=== PATIENT | male | born 1960 | race Caucasian/White ===

== ENCOUNTER 2020-06-04 11:05 | Inpatient (IN) | payer MEDICARE, MEDICAID ==
[~2020-06-04] VITALS: Ht 167.6 cm; Wt 99.5 kg
[2020-06-04] MEDS ORDERED: ONDANSETRON HCL 4MG/2ML INJ IV STA (11:21)
[2020-06-04] MEDS ORDERED: SODIUM CHLORIDE 0.9% 250 ML IV ONE (11:30)
[2020-06-04 12:53] LABS: BASOPHILS % 0.6 % (0.0-2.0); HEMATOCRIT. 32.3 % (42.0-52.0); HEMOGLOBIN. 11.3 g/dL (14.0-18.0); LYMPHOCYTES % 13.5 % (20.0-50.0); MEAN CORPUSCULAR HEMOGLOBIN 33.5 pg (28.0-32.0); MEAN CORPUSCULAR VOLUME 95.8 fL (80.0-94.0); MEAN PLATELET VOLUME 9.4 fl (7.4-10.4); MONOCYTES % 4.3 % (2.0-8.0); NEUTROPHILS % 81.6 % (40.0-76.0); PLATELET 81 x1000/uL (130-400); RED BLOOD CELL COUNT 3.37 mill/uL (4.7-6.1); RED CELL DISTRIBUTION WIDTH 14.6 % (11.6-14.6)
[2020-06-04 13:00] LABS: INR 1.1; PROTHROMBIN TIME 11.4 sec (9.6-11.0)
[2020-06-04 13:01] LABS: CHLORIDE 93 mEq/L (98-107)
[2020-06-04] MEDS ORDERED: GUAIFENESIN 200MG/10ML SUGAR FREE UDC PO PRN (15:30)
[2020-06-04] MEDS ORDERED: DIPHENHYDRAMINE 50MG/ML VIAL IV PRN (15:30)
[2020-06-04] MEDS ORDERED: DOCUSATE SODIUM 100MG CAPSULE PO PRN (15:30)
[2020-06-04] MEDS ORDERED: CLONIDINE 0.1MG TABLET PO PRN (15:30)
[2020-06-04] MEDS ORDERED: TRAMADOL 50MG TABLET PO PRN (15:30)
[2020-06-04] MEDS ORDERED: ACETAMINOPHEN 325MG TABLET PO PRN (15:30)
[2020-06-04] MEDS ORDERED: ENOXAPARIN 40MG/0.4ML SYR SUBCUT SCH (15:30)
[2020-06-04] MEDS ORDERED: ONDANSETRON HCL 4MG/2ML INJ IV PRN (15:30)
[2020-06-04] MEDS ORDERED: DEXTROSE 50% WATER 50ML SYRINGE IV PRN (15:30)
[2020-06-04] MEDS ORDERED: NITROGLYCERIN 0.4MG TABLET SL SL PRN (15:30)
[2020-06-04] MEDS ORDERED: CEFTRIAXONE 1 G PREMIX 50 ML IV SCH (16:00)
[2020-06-04] MEDS: BLOOD SUGAR DIAGNOSTIC STRIP TEST SCH ×3 (17:00→21:35)
[2020-06-04 17:01] LABS: D-DIMER 2.23 mg/L FEU (<0.50)
[2020-06-04 17:10] LABS: TOTAL IRON BINDING CAPACITY 189 ug/dL (250-450)
[2020-06-04 17:44] LABS: FOLIC ACID (FOLATE) SERUM 10.9 ng/mL (>5.38)
[2020-06-04 18:00] VITALS: BP 137/87
[2020-06-04] MEDS: INSULIN LISPRO 100 UNITS/ML SUBCUT SCH ×2 (18:01→21:00)
[2020-06-04] MEDS ORDERED: CARV25TA47 MT (18:05)
[2020-06-04] MEDS ORDERED: ALLO100T MT (18:05)
[2020-06-04] MEDS ORDERED: ASPI-1497 MT (18:05)
[2020-06-04] MEDS ORDERED: BENA10TA74 MT (18:05)
[2020-06-04] MEDS: ACETAMINOPHEN 325MG TABLET PO PRN (18:10)
[2020-06-04] MEDS: SEVELAMER CARBONATE 800 MG TABLET PO SCH (18:11)
[2020-06-04] MEDS: AZITHROMYCIN 500 MG in DEXT 5% WATER 250 ML IV SCH (18:11)
[2020-06-04 20:15] VITALS: BP 136/80
[2020-06-04] MEDS ORDERED: ZOLPIDEM TARTRATE 5MG TABLET PO PRN (21:00)
[2020-06-04] MEDS: METOPROLOL TARTRATE 25MG TABLET PO SCH (21:42)
[2020-06-04] MEDS: FAMOTIDINE 20MG TABLET PO SCH (21:42)
[2020-06-04] MEDS: GUAIFENESIN/DM 600MG/30MG ER TAB 12HR PO SCH (21:42)
[2020-06-04] MEDS: ASCORBIC ACID 500 MG TABLET PO SCH (21:43)
[2020-06-04 23:30] LABS: CREATINE KINASE 149 IU/L (39-308)
[2020-06-04 23:31] LABS: CREATINE KINASE MB FRACTION < 1.0 ng/mL (0.5-3.6)
[2020-06-05 00:09] VITALS: BP 139/80
[2020-06-05 04:00] VITALS: BP 147/81
[2020-06-05] MEDS: ACETAMINOPHEN 325MG TABLET PO PRN (05:46)
[2020-06-05] MEDS: BLOOD SUGAR DIAGNOSTIC STRIP TEST SCH ×5 (05:52→21:17)
[2020-06-05 06:28] LABS: CHLORIDE 93 mEq/L (98-107)
[2020-06-05 06:34] LABS: PHOSPHORUS 7.4 mg/dL (2.5-4.9)
[2020-06-05 06:36] LABS: CREATINE KINASE 133 IU/L (39-308)
[2020-06-05 06:42] LABS: CREATINE KINASE MB FRACTION < 1.0 ng/mL (0.5-3.6)
[2020-06-05 06:50] LABS: BASOPHILS % 0.4 % (0.0-2.0); EOSINOPHILS % 0.2 % (0.0-5.0); HEMATOCRIT. 34.4 % (42.0-52.0); HEMOGLOBIN. 11.7 g/dL (14.0-18.0); LYMPHOCYTES % 9.2 % (20.0-50.0); MEAN CORPUSCULAR VOLUME 96.8 fL (80.0-94.0); MEAN PLATELET VOLUME 9.1 fl (7.4-10.4); MONOCYTES % 3.8 % (2.0-8.0); NEUTROPHILS % 86.4 % (40.0-76.0); PLATELET 81 x1000/uL (130-400); RED BLOOD CELL COUNT 3.55 mill/uL (4.7-6.1); RED CELL DISTRIBUTION WIDTH 15.2 % (11.6-14.6)
[2020-06-05 08:00] VITALS: BP_SYST 126; BP_SYST 146; BP_DIAS 69
[2020-06-05] MEDS: INSULIN LISPRO 100 UNITS/ML SUBCUT SCH ×4 (08:10→21:00)
[2020-06-05 10:09] LABS: BG BASE EXCESS -3.6 mmol/L (-2.0-2.0); BG CARBOXYHEMOGLOBIN 0.6 % (0.5-1.5); BG DEOXYHEMOGLOBIN 4.4 % (0.0-5.0); BG FRACTION INSPIRED OXYGEN 26; BG HCO3 ACT 20.7 mmol/L (22.0-26.0); BG METHEMOGLOBIN 0.3 % (0.0-1.5); BG OXYGEN SATURATION 95.6 % (92.0-98.5); BG OXYHEMOGLOBIN 94.7 % (94.0-97.0); BG PCO2 34.6 mmHg (35.0-45.0); BG PH 7.394 (7.350-7.450); BG PO2 82.5 mmHg (75.0-100.0); BG SAMPLE SITE LEFT RADIAL; BG VENT MODE NASAL CANNULA
[2020-06-05] MEDS: GUAIFENESIN/DM 600MG/30MG ER TAB 12HR PO SCH ×2 (10:31→21:17)
[2020-06-05] MEDS: SEVELAMER CARBONATE 800 MG TABLET PO SCH ×3 (10:31→17:40)
[2020-06-05] MEDS: ASCORBIC ACID 500 MG TABLET PO SCH ×2 (10:31→21:17)
[2020-06-05] MEDS: METOPROLOL TARTRATE 25MG TABLET PO SCH ×2 (10:31→21:00)
[2020-06-05] MEDS: ASPIRIN 325MG EC TABLET PO SCH (10:32)
[2020-06-05] MEDS: ZINC SULFATE 220 MG ( 50 ) CAPSULE PO SCH (10:32)
[2020-06-05] MEDS: CEFTRIAXONE 1,000 MG in DEXTROSE 5% WATER 50 ML IV SCH (11:19)
[2020-06-05 12:00] VITALS: BP 121/60
[2020-06-05] MEDS: DEXAMETHASONE 2MG TABLET PO SCH (15:11)
[2020-06-05] MEDS: ALBUTEROL 6.7GM HFA INHALER ORI SCH ×2 (17:39→20:00)
[2020-06-05] MEDS: AZITHROMYCIN 500 MG in DEXT 5% WATER 250 ML IV SCH (17:42)
[2020-06-05] MEDS: MAGNESIUM/ALUMINUM HYDROXIDE/SIMETHICONE 30ML UDC PO PRN ×2 (18:34→18:35)
[2020-06-05 20:00] VITALS: BP 119/78
[2020-06-05] MEDS: FAMOTIDINE 20MG TABLET PO SCH (21:17)
[2020-06-06] VITALS: BP 118/72
[2020-06-06] MEDS: ALBUTEROL 6.7GM HFA INHALER ORI SCH ×4 (01:13→21:34)
[2020-06-06 04:00] VITALS: BP 99/65
[2020-06-06 08:00] VITALS: BP 118/69
[2020-06-06] MEDS: INSULIN LISPRO 100 UNITS/ML SUBCUT SCH ×4 (08:10→21:59)
[2020-06-06 09:10] LABS: BASOPHILS % 0.5 % (0.0-2.0); EOSINOPHILS % 0.1 % (0.0-5.0); HEMATOCRIT. 39.1 % (42.0-52.0); HEMOGLOBIN. 13.3 g/dL (14.0-18.0); LYMPHOCYTES % 8.1 % (20.0-50.0); MEAN CORPUSCULAR HEMOGLOBIN 32.8 pg (28.0-32.0); MEAN CORPUSCULAR VOLUME 96.7 fL (80.0-94.0); MEAN PLATELET VOLUME 9.2 fl (7.4-10.4); MONOCYTES % 4.2 % (2.0-8.0); NEUTROPHILS % 87.1 % (40.0-76.0); PLATELET 85 x1000/uL (130-400); RED BLOOD CELL COUNT 4.04 mill/uL (4.7-6.1); RED CELL DISTRIBUTION WIDTH 15.3 % (11.6-14.6)
[2020-06-06] MEDS: ASPIRIN 325MG EC TABLET PO SCH (09:16)
[2020-06-06] MEDS: GUAIFENESIN/DM 600MG/30MG ER TAB 12HR PO SCH ×2 (09:16→21:35)
[2020-06-06] MEDS: SEVELAMER CARBONATE 800 MG TABLET PO SCH ×3 (09:16→16:39)
[2020-06-06 09:17] LABS: CHLORIDE 93 mEq/L (98-107)
[2020-06-06] MEDS: ZINC SULFATE 220 MG ( 50 ) CAPSULE PO SCH (09:17)
[2020-06-06] MEDS: ASCORBIC ACID 500 MG TABLET PO SCH ×2 (09:17→21:35)
[2020-06-06] MEDS: DEXAMETHASONE 2MG TABLET PO SCH (09:17)
[2020-06-06] MEDS: METOPROLOL TARTRATE 25MG TABLET PO SCH ×2 (09:18→21:35)
[2020-06-06] MEDS: CEFTRIAXONE 1,000 MG in DEXTROSE 5% WATER 50 ML IV SCH (09:20)
[2020-06-06 09:22] LABS: PHOSPHORUS 6.8 mg/dL (2.5-4.9)
[2020-06-06 12:00] VITALS: BP 120/71
[2020-06-06] MEDS: BLOOD SUGAR DIAGNOSTIC STRIP TEST SCH ×3 (12:35→21:35)
[2020-06-06 16:00] VITALS: BP 125/72
[2020-06-06] MEDS ORDERED: AZITHROMYCIN 500 MG in DEXT 5% WATER 250 ML IV SCH (18:00)
[2020-06-06 20:00] VITALS: BP 111/71
[2020-06-06] MEDS: FAMOTIDINE 20MG TABLET PO SCH (21:34)
[2020-06-07] VITALS (7 sets, daily range): BP systolic 114–135; BP diastolic 66–86
[2020-06-07] MEDS: ALBUTEROL 6.7GM HFA INHALER ORI SCH ×4 (02:00→20:55)
[2020-06-07] MEDS: BLOOD SUGAR DIAGNOSTIC STRIP TEST SCH ×4 (05:57→20:57)
[2020-06-07 07:07] LABS: CHLORIDE 89 mEq/L (98-107)
[2020-06-07 07:09] LABS: HEMATOCRIT. 38.3 % (42.0-52.0); HEMOGLOBIN. 13.1 g/dL (14.0-18.0); MEAN CORPUSCULAR HEMOGLOBIN 32.5 pg (28.0-32.0); MEAN CORPUSCULAR VOLUME 95.2 fL (80.0-94.0); MEAN PLATELET VOLUME 9.9 fl (7.4-10.4); PLATELET 121 x1000/uL (130-400); RED BLOOD CELL COUNT 4.02 mill/uL (4.7-6.1); RED CELL DISTRIBUTION WIDTH 14.8 % (11.6-14.6)
[2020-06-07 07:15] LABS: PHOSPHORUS 7.9 mg/dL (2.5-4.9)
[2020-06-07] MEDS: CEFTRIAXONE 1,000 MG in DEXTROSE 5% WATER 50 ML IV SCH (08:24)
[2020-06-07] MEDS: ZINC SULFATE 220 MG ( 50 ) CAPSULE PO SCH (08:25)
[2020-06-07] MEDS: SEVELAMER CARBONATE 800 MG TABLET PO SCH ×3 (08:25→17:42)
[2020-06-07] MEDS: DEXAMETHASONE 2MG TABLET PO SCH (08:25)
[2020-06-07] MEDS: GUAIFENESIN/DM 600MG/30MG ER TAB 12HR PO SCH ×2 (08:25→20:55)
[2020-06-07] MEDS: METOPROLOL TARTRATE 25MG TABLET PO SCH ×2 (08:25→20:56)
[2020-06-07] MEDS: ASPIRIN 325MG EC TABLET PO SCH (08:25)
[2020-06-07] MEDS: ASCORBIC ACID 500 MG TABLET PO SCH ×2 (08:25→20:55)
[2020-06-07] MEDS: INSULIN LISPRO 100 UNITS/ML SUBCUT SCH ×4 (08:26→20:57)
[2020-06-07] MEDS: AZITHROMYCIN 500 MG TABLET PO SCH (17:41)
[2020-06-07] MEDS: FAMOTIDINE 20MG TABLET PO SCH (20:55)
[2020-06-08] MEDS: ALBUTEROL 6.7GM HFA INHALER ORI SCH ×4 (02:53→20:44)
[2020-06-08 04:00] VITALS: BP 122/60
[2020-06-08 08:00] VITALS: BP 135/75
[2020-06-08] MEDS: BLOOD SUGAR DIAGNOSTIC STRIP TEST SCH ×4 (10:10→21:11)
[2020-06-08 10:27] LABS: HEMATOCRIT. 39.3 % (42.0-52.0); HEMOGLOBIN. 13.4 g/dL (14.0-18.0); MEAN CORPUSCULAR HEMOGLOBIN 32.9 pg (28.0-32.0); MEAN CORPUSCULAR VOLUME 96.1 fL (80.0-94.0); MEAN PLATELET VOLUME 9.5 fl (7.4-10.4); PLATELET 131 x1000/uL (130-400); RED BLOOD CELL COUNT 4.08 mill/uL (4.7-6.1); RED CELL DISTRIBUTION WIDTH 15.5 % (11.6-14.6)
[2020-06-08] MEDS: INSULIN LISPRO 100 UNITS/ML SUBCUT SCH ×4 (10:30→23:34)
[2020-06-08] MEDS: METOPROLOL TARTRATE 25MG TABLET PO SCH ×2 (10:31→20:45)
[2020-06-08] MEDS: GUAIFENESIN/DM 600MG/30MG ER TAB 12HR PO SCH ×2 (10:31→20:44)
[2020-06-08] MEDS: ASPIRIN 325MG EC TABLET PO SCH (10:31)
[2020-06-08] MEDS: DEXAMETHASONE 2MG TABLET PO SCH (10:31)
[2020-06-08] MEDS: ASCORBIC ACID 500 MG TABLET PO SCH ×2 (10:32→20:44)
[2020-06-08] MEDS: SEVELAMER CARBONATE 800 MG TABLET PO SCH ×3 (10:32→17:36)
[2020-06-08] MEDS: ZINC SULFATE 220 MG ( 50 ) CAPSULE PO SCH (10:32)
[2020-06-08] MEDS: CEFTRIAXONE 1,000 MG in DEXTROSE 5% WATER 50 ML IV SCH (10:32)
[2020-06-08 12:00] VITALS: BP 143/75
[2020-06-08 12:49] LABS: PLATELET ESTIMATE DECREASED
[2020-06-08 15:54] VITALS: BP 139/89
[2020-06-08] MEDS: AZITHROMYCIN 500 MG TABLET PO SCH (17:36)
[2020-06-08 18:11] LABS: PLATELET ESTIMATE NORMAL
[2020-06-08 20:00] VITALS: BP 139/81
[2020-06-08] MEDS: FAMOTIDINE 20MG TABLET PO SCH (20:44)
[2020-06-09 00:21] VITALS: BP 141/85
[2020-06-09] MEDS: ALBUTEROL 6.7GM HFA INHALER ORI SCH ×2 (02:08→08:19)
[2020-06-09 04:00] VITALS: BP 156/90
[2020-06-09 05:29] LABS: HEMATOCRIT. 35.4 % (42.0-52.0); HEMOGLOBIN. 12.1 g/dL (14.0-18.0); MEAN CORPUSCULAR HEMOGLOBIN 32.5 pg (28.0-32.0); MEAN CORPUSCULAR VOLUME 95.7 fL (80.0-94.0); MEAN PLATELET VOLUME 9.6 fl (7.4-10.4); PLATELET 134 x1000/uL (130-400); RED CELL DISTRIBUTION WIDTH 15.4 % (11.6-14.6)
[2020-06-09 05:39] LABS: CHLORIDE 104 mEq/L (98-107)
[2020-06-09 05:45] LABS: PHOSPHORUS 4.8 mg/dL (2.5-4.9)
[2020-06-09] MEDS: BLOOD SUGAR DIAGNOSTIC STRIP TEST SCH (07:45)
[2020-06-09 08:00] VITALS: BP 147/85
[2020-06-09] MEDS: ASPIRIN 325MG EC TABLET PO SCH (08:11)
[2020-06-09] MEDS: SEVELAMER CARBONATE 800 MG TABLET PO SCH (08:11)
[2020-06-09] MEDS: ZINC SULFATE 220 MG ( 50 ) CAPSULE PO SCH (08:12)
[2020-06-09] MEDS: ASCORBIC ACID 500 MG TABLET PO SCH (08:12)
[2020-06-09] MEDS: DEXAMETHASONE 2MG TABLET PO SCH (08:12)
[2020-06-09] MEDS: GUAIFENESIN/DM 600MG/30MG ER TAB 12HR PO SCH (08:12)
[2020-06-09] MEDS: INSULIN LISPRO 100 UNITS/ML SUBCUT SCH (08:14)
[2020-06-09] MEDS: METOPROLOL TARTRATE 25MG TABLET PO SCH (08:20)
[2020-06-09 12:14] VITALS: BP 146/85
[2020-06-09 12:54] VITALS: BP 147/85
[2020-06-10 09:00] LABS: PLATELET ESTIMATE NORMAL
== END 2020-06-09 14:16 | disposition home health service (06) | DRG 871 ==
LOC: ER 11:32 → SUPCPDRO 15:26 → 7WST 15:39 → EDBEDREQTM 15:43 → EDBEDREQ 15:43 → ENRESERV 16:34
PROVIDERS: ADMIT Internal Medicine; ATTEND Internal Medicine
PROC: 5A1D70Z Performance of Urinary Filtration, Intermittent, Less than 6 Hours Per Day (ICD-10-PCS; 2020-06-04)
PROC: 5A1D70Z Performance of Urinary Filtration, Intermittent, Less than 6 Hours Per Day (ICD-10-PCS; principal; 2020-06-07)
DX: A41.89 Other specified sepsis (principal); U07.1 COVID-19; J96.01 Acute respiratory failure with hypoxia; N18.6 End stage renal disease; J12.89 Other viral pneumonia; I50.43 Acute on chronic combined systolic (congestive) and diastolic (congestive) heart failure; I13.2 Hypertensive heart and chronic kidney disease with heart failure and with stage 5 chronic kidney disease, or end stage renal disease; D61.818 Other pancytopenia; E87.1 Hypo-osmolality and hyponatremia; D68.59 Other primary thrombophilia; E66.9 Obesity, unspecified; H54.61 Unqualified visual loss, right eye, normal vision left eye; E11.22 Type 2 diabetes mellitus with diabetic chronic kidney disease; D63.1 Anemia in chronic kidney disease; E78.5 Hyperlipidemia, unspecified; J20.8 Acute bronchitis due to other specified organisms; Z99.2 Dependence on renal dialysis; Z79.4 Long term (current) use of insulin; Z68.35 Body mass index [BMI] 35.0-35.9, adult; Z79.82 Long term (current) use of aspirin; Z79.899 Other long term (current) drug therapy; D63.8 Anemia in other chronic diseases classified elsewhere
CPT/HCPCS: 36415; 36600; 71045; 80048; 80053; 82375; 82550; 82553; 82607; 82746; 82805; 82962; 83036; 83540; 83550; 83605; 83615; 83735; 83880; 84100; 84145; 84484; 85025; 85379; 85384; 93005; 93970; 99291; J0456; J0696; J1815; J2405; J7050; J7060; J8540; U0003-CS

== ENCOUNTER 2021-09-05 22:50 | Emergency (ER) | payer MEDICARE, MEDICAID ==
[~2021-09-05] VITALS: Ht 167.6 cm; Wt 105.0 kg
[~2021-09-05 22:50] MED LIST: ALLO100T MT; ASPI-1497 MT; BENA10TA74 MT; CARV25TA47 MT
[2021-09-05] MEDS ORDERED: CYCLOBENZAPRINE 10MG TABLET PO ONE (23:45)
[2021-09-05] MEDS ORDERED: IBUPROFEN 400MG TABLET PO ONE (23:45)
[2021-09-05] MEDS ORDERED: IBUP-2028 MT (23:50)
[2021-09-05] MEDS ORDERED: CYCL10TA7 MT (23:50)
[2021-09-06] MEDS ORDERED: KETOROLAC 15MG/ML VIAL IM ONE (01:00)
[2021-09-06 01:02] VITALS: BP 185/91
== END 2021-09-06 01:20 | disposition home or self-care (01) ==
LOC: ER 22:50
DX: M54.30 Sciatica, unspecified side (principal); I12.0 Hypertensive chronic kidney disease with stage 5 chronic kidney disease or end stage renal disease; E11.22 Type 2 diabetes mellitus with diabetic chronic kidney disease; N18.6 End stage renal disease; Z99.2 Dependence on renal dialysis; Z79.82 Long term (current) use of aspirin; Z86.73 Personal history of transient ischemic attack (TIA), and cerebral infarction without residual deficits
CPT/HCPCS: 96372; 99283; J1885